=== PATIENT | male | born 1935 | race Caucasian/White ===

== ENCOUNTER → 2023-07-24 14:03 | Outpatient (REF) | payer MEDICARE, BC, SELFPAY | LOC: RCS 14:03 | PROVIDERS: ATTENDING PHYSICIAN Internal Medicine Cardiovascular Disease; FAMILY PHYSICIAN Internal Medicine | DX: I48.0 Paroxysmal atrial fibrillation (principal); R01.1 Cardiac murmur, unspecified | CPT/HCPCS: 93306 ==